=== PATIENT | male | born 1945 | race Caucasian/White ===

== ENCOUNTER 2018-05-20 16:01 | Observation (INO) ==
--- NOTE | 2018-05-20 16:34 | Emergency Department Note ---
Disposition Clinical Impression: Acute encephalopathy, Afib Disposition: Admitted As Inpatient Condition: Good Referrals: NONE,PCP [Primary Care Provider] - Forms: ED Satisfaction Letter Time of Disposition: 17:34 General Adult HPI - General Chief complaint: ED Overdose Stated complaint: Possible OD Time Seen by Provider: 05/20/18 16:03 Source: EMS Mode of arrival: EMS Limitations: no limitations Nursing Notes Reviewed: Yes Vital Signs Reviewed: Yes - History of Present Illness HPI Narrative: 72 yo F male presents to the emergency room for altered mental status. Patient was on a bus trip with some friends and just got back from [place]. Apparently he had been sleeping a lot on the way back. When he got back to [facility] they went to wake him up to get him out of the van in he was very lethargic and near unresponsive. EMS arrived. They found his respirations to be 4. They gave him Narcan as he had pinpoint pupils. He woke up within a few seconds. He presented to the ER shivering and appeared to be an opiate withdrawal. The family members that were with him on the bus trip states that he did not take more of his medications and when he normally does. He takes hydrocodone at least 4 times a day. They stated that he had previous episodes of these unresponsive spells and had been treated here at the hospital for this approximately over a year ago. Limited history at this time. There is no reports of any chest pain. No other focal complaints from family members at this time or via the patient. Pain Scale: 0 - Related Data Home Medications Medication Instructions Recorded Confirmed Aspirin [Lo-Dose Aspirin EC] 81 mg PO DAILY 11/20/16 11/01/17 Atorvastatin Calcium [Lipitor] 20 mg PO HS 11/20/16 11/01/17 Calcium Carbonate [Calcium] 500 mg PO DAILY 11/20/16 11/01/17 Cholecalciferol (D-3) [Vitamin D] 1,000 unit PO DAILY 11/20/16 11/01/17 Cyclobenzaprine HCl 5 mg PO TID PRN 11/20/16 11/01/17 Donepezil [Aricept] 10 mg PO HS 11/20/16 11/01/17 Folic Acid 1 mg PO DAILY 11/20/16 11/01/17 Gabapentin [Neurontin] 800 mg PO TID 11/20/16 11/01/17 Glucosamine HCl 3,000 mg PO DAILY 11/20/16 11/01/17 LevETIRAcetam [Roweepra] 500 mg PO BID 11/20/16 11/01/17 Lisinopril [Zestril] 20 mg PO DAILY 11/20/16 11/01/17 Loratadine [Allergy Relief] 10 mg PO DAILY 11/20/16 11/01/17 Methotrexate [Otrexup] 7.5 mg PO SA 11/20/16 11/01/17 Multivitamin [One Daily Essential] 1 tab PO DAILY 11/20/16 11/01/17 Warfarin [Coumadin] 1.5 mg PO ALMANZAR 11/20/16 11/01/17 Warfarin [Coumadin] 3 mg PO MOTUWETHFRSA 11/20/16 11/01/17 Zinc [Zinc Chelated] 50 mg PO DAILY 11/20/16 11/01/17 dilTIAZem HCl [Diltiazem 24Hr ER] 300 mg PO DAILY 11/20/16 11/01/17 Carbidopa/Levodopa 25/100 [Sinemet 2 tab PO BID 11/01/17 11/01/17 25/100] Diclofenac Sodium [Voltaren] 1 appl TP QID PRN 11/01/17 11/01/17 Docusate [Colace] 100 mg PO BID 11/01/17 11/01/17 Ezetimibe [Zetia] 10 mg PO DAILY 11/01/17 11/01/17 Fluticasone Propionate Nasal 1 spr NS DAILY 11/01/17 11/01/17 [Flonase] Folic Acid 1 mg PO DAILY 11/01/17 11/01/17 HYDROcodone/Acet 5/325 mg [[place] 1 tab PO Q6H PRN 11/01/17 11/01/17 5-325 mg] Memantine [Namenda] 5 mg PO BID 11/01/17 11/01/17 Ranitidine HCl [Heartburn Relief] 150 mg PO BID 11/01/17 11/01/17 Vitamin B Complex [B Complex] 1 tab PO DAILY 11/01/17 11/01/17 Vitamin E (Dl,Tocopheryl Acet) 400 unit PO DAILY 11/01/17 11/01/17 [Vitamin E] Zolpidem [Ambien] 10 mg PO HS 11/01/17 11/01/17 rOPINIRole [Requip] 1 mg PO HS 11/01/17 11/01/17 Allergies Allergy/AdvReac Type Severity Reaction Status Date / Time trazodone Allergy Drowsy Verified 11/01/17 12:54 latex AdvReac Rash Verified 11/01/17 12:54 Penicillins AdvReac Rash Verified 11/01/17 12:54 Limitations: ROS unobtainable due to patients medical condition (Patient is altered) Past Medical History - Past Medical History Medical history: Reports: atrial fibrillation, coronary artery disease, GERD, hyperlipidemia, hypertension, myocardial infarction, RA Psychiatric history: Reports: no psych history - Social History Smoking Status: Former smoker Smokeless Tobacco Status: No Alcohol use: Reports: recent Drug use: Reports: none Physical Exam - General Limitations: no limitations General appearance: appears intoxicated, lethargic - Head Head exam: atraumatic, normocephalic - Eye Eye exam: Present: conjunctival injection, other (Patient has pinpoint pupils bilaterally.). Absent: scleral icterus - ENT ENT exam: normal exam, normal oropharynx - Neck Neck exam: Present: normal inspection, full ROM, trachea midline - Chest Chest inspection: Present: normal inspection, symmetric chest wall rise - Respiratory Respiratory exam: Present: normal lung sounds bilaterally - Cardiovascular Cardiovascular exam: Present: irregular rhythm - Abdominal Exam Abdominal exam: Present: soft, Non-Tender, normal bowel sounds - Extremities Exam Extremities exam: Present: normal inspection - Expanded Lower Extremity Exam Hip/Pelvis exam: Present: normal inspection - Back Exam Back exam: Present: normal inspection - Neurological Exam Neurological exam: Present: other - Expanded Neurological Exam Patient oriented to: Present: person, place Coma Scale Eye Opening: To Voice Coma Scale Motor Response: Obeys Commands Coma Scale Verbal Response: Confused Coma Scale Total: 13 - Psychiatric Psychiatric exam: Present: other (Sleepy) - Skin Skin exam: Present: warm, dry, intact Course - Reevaluation(s) Reevaluation #1: Spoke with family member/friend who came to the ER. They stated that he did not take any new medications or any excess medications today. Patient woke up after the second Narcan as well. He has been alert and oriented ever since. Patient states he does not remember much of his troponin today from [place]. States he slept most of the way but does not remember traveling home. States he felt fine this morning. He members eating breakfast. He remembers stopping to eat lunch. States he drank 2 beers at lunch with his food. He does remember much after that. He denies any chest pain or shortness of breath. Vital Signs Temperature 97.7 F 05/20/18 16:04 Pulse Rate 81 05/20/18 16:04 Respiratory Rate 20 05/20/18 16:04 Blood Pressure 170/90 05/20/18 16:04 O2 Sat by Pulse Oximetry 99 05/20/18 16:04 Temperature 97.7 F 05/20/18 16:04 Pulse Rate 81 05/20/18 16:04 Respiratory Rate 20 05/20/18 16:04 Blood Pressure 170/90 05/20/18 16:04 O2 Sat by Pulse Oximetry 99 05/20/18 16:04 Oxygen Delivery Oxygen Delivery Room Air Medical Decision Making - MDM Narrative Medical decision making narrative: Patient has no significant lab findings from his baseline. His CT of the brain was negative. Chest x-ray was stable for him. His vitals have been stable in the ER. He still cannot remember much of his troponin from [place]. Patient will be admitted overnight for observation. I did speak with the hospitalist. I feel this is secondary to polysubstance with these medications from home mixed with his hydrocodone and the fact he drinks some alcohol today at lunch. - Medical Records Medical records reviewed: Yes I reviewed the patient's medical records. - Lab Data Lab results reviewed: Yes I reviewed the patient's lab results. Result diagrams: 05/20/18 16:19 05/20/18 16:19 Lab Results 05/20/18 05/20/18 05/20/18 Range/Units 16:19 16:19 16:19 WBC 6.9 (4.3-11.1) K/mcL RBC 4.10 L (4.19-5.50) M/mcL Hgb 14.1 (12.9-16.9) g/dL Hct 42.8 (37.5-50.1) % MCV 104.4 H (83.0-100.0) fL MCH 34.4 H (28.0-33.3) pg MCHC 32.9 (31.6-35.5) g/dL RDW 13.8 (11.5-14.5) % Plt Count 176 (140-400) K/mcL MPV 10.3 (9.4-12.4) fL Immature Gran % 0.4 (0-4) % Seg Neutrophils % 47.6 % Lymphocytes % 28.9 % Monocytes % 12.2 % Eosinophils % 10.0 % Basophils % 0.9 % Neutrophils # 3.3 (1.6-8.9) K/mcL Lymphocytes # 2.0 (0.6-4.6) K/mcL Monocytes # 0.8 (0.0-1.3) K/mcL Eosinophils # 0.7 H (0.0-0.6) K/mcL Basophils # 0.1 (0.0-0.2) K/mcL PT (9.4-12.1) Seconds INR Sodium 140 (136-145) mEq/L Potassium 4.3 (3.5-5.1) mEq/L Chloride 106 (98-107) mEq/L Carbon Dioxide 30 H (23-29) mEq/L BUN 8 (8-23) mg/dL Creatinine 0.79 (0.70-1.30) mg/dL Est GFR ( Amer) > 60 (> 60) Est GFR (Non-Af Amer) > 60 (> 60) BUN/Creatinine Ratio 10 (6-26) Glucose 109 H (70-105) mg/dL Calculated Osmolality 289 (280-300) Calcium 9.6 (8.6-10.3) mg/dL Total Bilirubin 0.6 (0.3-1.0) mg/dL Direct Bilirubin 0.1 (0.0-0.2) mg/dL Indirect Bilirubin 0.5 (0.0-1.2) mg/dL AST 21 (13-39) Units/L ALT 16 (7-52) Units/L Alkaline Phosphatase 86 (34-104) Units/L Troponin I < 0.03 (< 0.04) ng/mL Serum Total Protein 6.9 (6.4-8.9) g/dL Albumin 4.3 (3.5-5.7) g/dL Globulin 2.6 (2.4-3.5) g/dL Albumin/Globulin Ratio 1.7 (1.1-2.2) Urine Color (Yellow) Urine Clarity (Clear) Urine pH (5.0-8.0) pH Units Ur Specific [place] (1.010-1.025) Urine Protein (Neg-Trace) mg/dL Urine Glucose (UA) (Normal) mg/dL Urine Ketones (Negative) mg/dL Urine Blood (Negative) Urine Nitrite (Negative) Urine Bilirubin (Negative) Urine Urobilinogen (Normal) mg/dL Ur Leukocyte Esterase (Negative) Urine Microscopic RBC (0-3) per hpf Urine Microscopic WBC (0-3) per hpf Ur Squamous Epith Cells (None-Few) per lpf Urine Bacteria (None-Few) per hpf Hyaline Casts (None-Few) per lpf Ur Culture Indicated? (NO) Salicylates < 2.5 L (15.0-30.0) mg/dL Urine Opiates Screen (Wikksv=204) ng/mL Acetaminophen < 10 L (10-20) mcg/mL Ur Barbiturates Screen (Hikrhk=446) ng/mL Ur Phencyclidine Scrn (Cutoff=25) ng/mL Ur Amphetamines Screen (Imvlim=5545) ng/mL U Benzodiazepines Scrn (Lzmkfr=979) ng/mL Urine Cocaine Screen (Cutoff= 300) ng/mL U Marijuana (THC) Screen (Cutoff = 50) ng/mL Ur Drug Screen Interp Ethyl Alcohol < 10 (Less than 10) mg/dL 05/20/18 05/20/18 05/20/18 Range/Units 16:19 16:39 16:39 WBC (4.3-11.1) K/mcL RBC (4.19-5.50) M/mcL Hgb (12.9-16.9) g/dL Hct (37.5-50.1) % MCV (83.0-100.0) fL MCH (28.0-33.3) pg MCHC (31.6-35.5) g/dL RDW (11.5-14.5) % Plt Count (140-400) K/mcL MPV (9.4-12.4) fL Immature Gran % (0-4) % Seg Neutrophils % % Lymphocytes % % Monocytes % % Eosinophils % % Basophils % % Neutrophils # (1.6-8.9) K/mcL Lymphocytes # (0.6-4.6) K/mcL Monocytes # (0.0-1.3) K/mcL Eosinophils # (0.0-0.6) K/mcL Basophils # (0.0-0.2) K/mcL PT 27.6 H (9.4-12.1) Seconds INR 2.4 Sodium (136-145) mEq/L Potassium (3.5-5.1) mEq/L Chloride (98-107) mEq/L Carbon Dioxide (23-29) mEq/L BUN (8-23) mg/dL Creatinine (0.70-1.30) mg/dL Est GFR ( Amer) (> 60) Est GFR (Non-Af Amer) (> 60) BUN/Creatinine Ratio (6-26) Glucose (70-105) mg/dL Calculated Osmolality (280-300) Calcium (8.6-10.3) mg/dL Total Bilirubin (0.3-1.0) mg/dL Direct Bilirubin (0.0-0.2) mg/dL Indirect Bilirubin (0.0-1.2) mg/dL AST (13-39) Units/L ALT (7-52) Units/L Alkaline Phosphatase (34-104) Units/L Troponin I (< 0.04) ng/mL Serum Total Protein (6.4-8.9) g/dL Albumin (3.5-5.7) g/dL Globulin (2.4-3.5) g/dL Albumin/Globulin Ratio (1.1-2.2) Urine Color Yellow (Yellow) Urine Clarity Clear (Clear) Urine pH 7.5 (5.0-8.0) pH Units Ur Specific [place] 1.019 (1.010-1.025) Urine Protein Negative (Neg-Trace) mg/dL Urine Glucose (UA) Normal (Normal) mg/dL Urine Ketones Negative (Negative) mg/dL Urine Blood Negative (Negative) Urine Nitrite Negative (Negative) Urine Bilirubin Negative (Negative) Urine Urobilinogen Normal (Normal) mg/dL Ur Leukocyte Esterase Small H (Negative) Urine Microscopic RBC 0-3 (0-3) per hpf Urine Microscopic WBC 3-5 H (0-3) per hpf Ur Squamous Epith Cells None Seen (None-Few) per lpf Urine Bacteria None Seen (None-Few) per hpf Hyaline Casts None Seen (None-Few) per lpf Ur Culture Indicated? YES A (NO) Salicylates (15.0-30.0) mg/dL Urine Opiates Screen Positive H (Kjxixd=392) ng/mL Acetaminophen (10-20) mcg/mL Ur Barbiturates Screen Negative (Blialf=262) ng/mL Ur Phencyclidine Scrn Negative (Cutoff=25) ng/mL Ur Amphetamines Screen Negative (Acotjc=2160) ng/mL U Benzodiazepines Scrn Negative (Nyyyxd=852) ng/mL Urine Cocaine Screen Negative (Cutoff= 300) ng/mL U Marijuana (THC) Screen Negative (Cutoff = 50) ng/mL Ur Drug Screen Interp See Below Ethyl Alcohol (Less than 10) mg/dL - Radiology Data Radiology results reviewed: Yes I reviewed the patient's radiology results. - EKG Data EKG #1 EKG attestation: Yes I reviewed and interpreted this EKG. EKG results narrative: EKG shows atrial fibrillation. Rate is 79. QRS 86. QTC 397. Patient has diffuse ST depressions throughout the lateral and inferior leads. This was seen on previous EKG from 2015. Critical Care Time Critical Care Time: Yes Total Critical Care Time: 35 Attestation: Critical care time of 35 minutes spent in medical management of acute altered mental status.
[2018-05-20 16:36] LABS: Basophils # 0.1 K/mcL (0.0-0.2); Basophils % 0.9 %; Eosinophils # 0.7 K/mcL (0.0-0.6); Hematocrit 42.8 % (37.5-50.1); Hemoglobin 14.1 g/dL (12.9-16.9); Immature Granulocytes % 0.4 % (0-4); Lymphocytes % 28.9 %; Mean Corpuscular HGB Conc 32.9 g/dL (31.6-35.5); Mean Corpuscular Hemoglobin 34.4 pg (28.0-33.3); Mean Corpuscular Volume 104.4 fL (83.0-100.0); Mean Platelet Volume 10.3 fL (9.4-12.4); Monocytes # 0.8 K/mcL (0.0-1.3); Monocytes % 12.2 %; Neutrophils # 3.3 K/mcL (1.6-8.9); Platelet Count 176 K/mcL (140-400); Red Cell Distribution Width 13.8 % (11.5-14.5); Segmented Neutrophils % 47.6 %
[2018-05-20 16:53] LABS: Acetaminophen < 10 mcg/mL (10-20); Ethanol < 10 mg/dL (Less than 10); Salicylate < 2.5 mg/dL (15.0-30.0)
[2018-05-20 16:54] LABS: INR 2.4; Prothrombin Time 27.6 Seconds (9.4-12.1)
[2018-05-20 16:56] LABS: Alanine Aminotransferase 16 Units/L (7-52); Albumin 4.3 g/dL (3.5-5.7); Albumin/Globulin Ratio 1.7 (1.1-2.2); Alkaline Phosphatase 86 Units/L (34-104); Aspartate Amino Transferase 21 Units/L (13-39); BUN/Creatinine Ratio 10 (6-26); Bilirubin,Direct 0.1 mg/dL (0.0-0.2); Bilirubin,Indirect 0.5 mg/dL (0.0-1.2); Bilirubin,Total 0.6 mg/dL (0.3-1.0); Blood Urea Nitrogen 8 mg/dL (8-23); Calcium 9.6 mg/dL (8.6-10.3); Carbon Dioxide 30 mEq/L (23-29); Chloride 106 mEq/L (98-107); Globulin 2.6 g/dL (2.4-3.5); Glucose 109 mg/dL (70-105); Osmolality,Calculated 289 (280-300); Potassium 4.3 mEq/L (3.5-5.1); Sodium 140 mEq/L (136-145); Total Protein 6.9 g/dL (6.4-8.9); Troponin I < 0.03 ng/mL (< 0.04); eGFR For Non-African Americans > 60 (> 60)
[2018-05-20 17:13] LABS: Amphetamine Screen,Urine Negative ng/mL (Cutoff=1000); Barbiturate Screen,Urine Negative ng/mL (Cutoff=200); Benzodiazepines Screen,Urine Negative ng/mL (Cutoff=200); Cannabinoid Screen,Urine Negative ng/mL (Cutoff = 50); Cocaine Screen,Urine Negative ng/mL (Cutoff= 300); Opiate Screen,Urine Positive ng/mL (Cutoff=300); Phencyclidine Screen,Urine Negative ng/mL (Cutoff=25)
[2018-05-20 17:19] LABS: Bilirubin,Urine Negative (Negative); Blood,Urine Negative (Negative); Clarity,Urine Clear (Clear); Color,Urine Yellow (Yellow); Glucose,Urine (UA) Normal (Normal); Ketones,Urine Negative (Negative); Leukocyte Esterase,Urine Small (Negative); Nitrite,Urine Negative (Negative); PH,Urine 7.5 pH Units (5.0-8.0); Protein,Urine Negative (Neg-Trace); Specific Gravity,Urine 1.019 (1.010-1.025); Urobilinogen,Urine Normal (Normal)
[2018-05-20 17:21] LABS: Bacteria,Urine None Seen per hpf (None-Few); Hyaline Casts,Urine None Seen per lpf (None-Few); RBC,Urine 0-3 per hpf (0-3); Squamous Epithelial Cell,Urine None Seen per lpf (None-Few)
[2018-05-20] MEDS ORDERED: Naloxone 0.4 MG/ML INJ IVP PRN ×2 (17:39→18:38)
--- NOTE | 2018-05-20 18:38 | Internal Med History&Physical ---
Date of Encounter: 05/20/18 Time of Encounter: 16:30 Internal Medicine - H&P: HPI History of present illness: 72 yo F male presents to the emergency room for altered mental status. Patient had recent bus trip from [place]. Per his significant other at bedside, he was somnolent in the back during the entire ride. They tried to wake him up and he was lethargic and so they called EMS. His RR was 4, he had pinpoint pupils and they gave Narcan and reported that he became alert afterwords. He presented to ED shivering and with opiate withdrawal-like symptoms. He is compliant with medications and does not take more than prescribed. Patient is on significant amount of RECOVERY ANALYST depressing medications. He takes Hydrocodone regularly about 4 times per day, Flexeril, Sinemet, Aricept, Gabapentin, Ambien. Patient states that this happened before as well about a year ago. Patient in the ED was completely alert and ambulating with some assistance by the time of exam. Patient was on a bus trip with some friends and just got back from [place]. Past Med Surg Social Fam HX - Past Medical History Medical history: atrial fibrillation, coronary artery disease, GERD, hyperlipidemia, hypertension, myocardial infarction, RA Additional medical history: Rheumatic Fever. Sleep Apnea (CPAP at home) Psychiatric history: no psych history - Past Surgical History Additional surgical history: CABG 1993. Bilateral Hernia Repair - Social History Smoking Status: Former smoker Smokeless Tobacco Status: No Alcohol use: recent Drug use: none - Family History Mother Living Status: Age at : 72 Hx Family Cardiac Disorders: Yes Father Living Status: Age at : 60 Hx Family Cardiac Disorders: Yes ([place]) Internal Medicine - H&P: Meds Aspirin [Lo-Dose Aspirin EC] 81 mg PO DAILY 11/20/16 [History] Atorvastatin Calcium [Lipitor] 20 mg PO HS 11/20/16 [History] Calcium Carbonate [Calcium] 500 mg PO DAILY 11/20/16 [History] Cholecalciferol (D-3) [Vitamin D] 1,000 unit PO DAILY 11/20/16 [History] Cyclobenzaprine HCl 5 mg PO TID PRN 11/20/16 [History] Donepezil [Aricept] 10 mg PO HS 11/20/16 [History] Folic Acid 1 mg PO DAILY 11/20/16 [History] Gabapentin [Neurontin] 800 mg PO TID 11/20/16 [History] Glucosamine HCl 3,000 mg PO DAILY 11/20/16 [History] LevETIRAcetam [Roweepra] 500 mg PO BID 11/20/16 [History] Lisinopril [Zestril] 20 mg PO DAILY 11/20/16 [History] Loratadine [Allergy Relief] 10 mg PO DAILY 11/20/16 [History] Methotrexate [Otrexup] 7.5 mg PO SA 11/20/16 [History] Multivitamin [One Daily Essential] 1 tab PO DAILY 11/20/16 [History] Warfarin [Coumadin] 1.5 mg PO ALMANZAR 11/20/16 [History] Warfarin [Coumadin] 3 mg PO MOTUWETHFRSA 11/20/16 [History] Zinc [Zinc Chelated] 50 mg PO DAILY 11/20/16 [History] dilTIAZem HCl [Diltiazem 24Hr ER] 300 mg PO DAILY 11/20/16 [History] Carbidopa/Levodopa 25/100 [Sinemet 25/100] 2 tab PO BID 11/01/17 [History] Diclofenac Sodium [Voltaren] 1 appl TP QID PRN 11/01/17 [History] Docusate [Colace] 100 mg PO BID 11/01/17 [History] Ezetimibe [Zetia] 10 mg PO DAILY 11/01/17 [History] Fluticasone Propionate Nasal [Flonase] 1 spr NS DAILY 11/01/17 [History] Folic Acid 1 mg PO DAILY 11/01/17 [History] HYDROcodone/Acet 5/325 mg [[place] 5-325 mg] 1 tab PO Q6H PRN 11/01/17 [History] Memantine [Namenda] 5 mg PO BID 11/01/17 [History] Ranitidine HCl [Heartburn Relief] 150 mg PO BID 11/01/17 [History] Vitamin B Complex [B Complex] 1 tab PO DAILY 11/01/17 [History] Vitamin E (Dl,Tocopheryl Acet) [Vitamin E] 400 unit PO DAILY 11/01/17 [History] Zolpidem [Ambien] 10 mg PO HS 11/01/17 [History] rOPINIRole [Requip] 1 mg PO HS 11/01/17 [History] Allergy/AdvReac Type Severity Reaction Status Date / Time trazodone Allergy Drowsy Verified 11/01/17 12:54 latex AdvReac Rash Verified 11/01/17 12:54 Penicillins AdvReac Rash Verified 11/01/17 12:54 All Systems PM: A 10-system review of systems was performed and is negative for pertinent findings except as documented above in the HPI. - Constitutional Vitals: Temp Pulse Resp BP Pulse Ox 97.7 F 87 16 161/92 100 05/20/18 16:04 05/20/18 17:48 05/20/18 17:48 05/20/18 17:48 05/20/18 17:48 Exam: . - Head Head exam: Present: atraumatic, normocephalic - Eye Eye exam: Present: PERRL, conjuntiva pink, sclera anicteric Pupils: Present: PERRL - Neck Neck exam general surgery: Present: supple, trachea midline. Absent: lymphadenopathy - Respiratory Respiratory exam: Present: CTAB. Absent: accessory muscle use, rales, rhonchi, wheezes - Cardiovascular Cardiovascular exam: Present: irregular rhythm, +S1, +S2. Absent: diastolic murmur, gallop, rubs, systolic murmur - GI/Abdominal GI/Abdominal exam: Present: normal bowel sounds, soft, no peritoneal signs. Absent: distended, tenderness - Extremities Exam Extremities exam: Present: warm, radial pulses palpable and symmetrical. Absent: calf tenderness, cyanotic, pedal edema - Neurological Exam Neurological exam: Present: CN II-XII intact, oriented X3, no focal deficits. Absent: pronater drift, facial droop, speech deficit - Skin Skin exam: Present: dry, intact Internal Med - H&P Results - Labs CBC & Chem 7: 05/20/18 16:19 05/20/18 16:19 Labs: Short CBC 05/20/18 Range/Units 16:19 WBC 6.9 (4.3-11.1) K/mcL Hgb 14.1 (12.9-16.9) g/dL Hct 42.8 (37.5-50.1) % Plt Count 176 (140-400) K/mcL Neutrophils # 3.3 (1.6-8.9) K/mcL BMP 11/09/18 16:19 Sodium 140 Potassium 4.3 Chloride 106 Carbon Dioxide 30 H BUN 8 Creatinine 0.79 Glucose 109 H Calcium 9.6 Cardiac Enzymes 05/20/18 Range/Units 16:19 Troponin I < 0.03 (< 0.04) ng/mL Liver Function 05/20/18 Range/Units 16:19 Total Bilirubin 0.6 (0.3-1.0) mg/dL Direct Bilirubin 0.1 (0.0-0.2) mg/dL AST 21 (13-39) Units/L ALT 16 (7-52) Units/L Alkaline Phosphatase 86 (34-104) Units/L Albumin 4.3 (3.5-5.7) g/dL Urine 05/20/18 Range/Units 16:39 Urine Color Yellow (Yellow) Urine Clarity Clear (Clear) Urine pH 7.5 (5.0-8.0) pH Units Ur Specific [place] 1.019 (1.010-1.025) Urine Protein Negative (Neg-Trace) mg/dL Urine Glucose (UA) Normal (Normal) mg/dL - Impressions ITS Impressions Chest X-Ray 05/20/18 16:11 IMPRESSION: Slight to mild pulmonary vascular congestion. No other significant abnormality. Prior CABG. D/ / Link Hernandez MD / Link Hernandez MD Interpreting Provider: Link Hernandez MD Head CT 05/20/18 16:11 IMPRESSION: No acute intracranial abnormality. [id number] atrophy appropriate for age. Large amount of ischemic white matter change also age-appropriate. No significant change from the prior study. D/ / Link Hernandez MD / Link Hernandez MD Interpreting Provider: Link Hernandez MD - Assessment and plan (1) Acute encephalopathy Current Visit: Yes Status: Acute Assessment and plan: Based on presentation after EMS treated patient prior to arrival with RR 4, pinpoint pupuls, on chronic opiates, as Narcan responsive, and in the ED again responded to Narcan, and significant RECOVERY ANALYST depressant medications, this is likely due to opiate overdose. CT head had no acute abnormalities. Patient has no focal deficits, he is now completely awake and alert. - Continue telemetry monitoring - Narcan prn - Resume home medications minus Flexeril. Reduce dosage of Gabapentin to avoid gabapentin withdrawal. Discontinue Ambien. Awaiting med rec. (2) History of coronary artery bypass graft Current Visit: Yes Status: Acute (3) Ejection fraction < 50% Current Visit: Yes Status: Acute (4) Severe sleep apnea Current Visit: Yes Status: Acute (5) Coronary artery disease Current Visit: Yes Status: Acute Qualifiers: Coronary Disease-Associated Artery/Lesion type: unspecified vessel or lesion type [place] vs. transplanted heart: unspecified whether [place] or transplanted heart Associated angina: angina presence unspecified Qualified Code(s): I25.10 - Atherosclerotic heart disease of [place] coronary artery without angina pectoris (6) Hypertension Current Visit: Yes Status: Acute Qualifiers: Hypertension type: unspecified Qualified Code(s): I10 - Essential (primary) hypertension (7) Afib Current Visit: Yes Status: Acute Assessment and plan: Resume home medications. On coumadin Qualifiers: Atrial fibrillation type: chronic Qualified Code(s): I48.2 - Chronic atrial fibrillation (8) DVT prophylaxis Current Visit: Yes Status: Acute Assessment and plan: On Coumadin for afib. - Time Spent With Patient Total time spent is greater than 50% in coordination of care (as documented) at patient's floor/unit and/or counseling patient:
[2018-05-20] MEDS ORDERED: Melatonin 3 MG TABLET PO PRN (18:41)
[2018-05-20] MEDS ORDERED: Ipratropium/Albuterol Neb 3 ML IH PRN (18:41)
--- NOTE | 2018-05-20 19:10 | Electrocardiograph Report ---
[place] [facility] Test Date: 2018-05-20 Pat Name: Ryne Fletcher Department: [id number] Room: 3A52 Gender: Respite Care Provider: : 1945 Requested By: Hemant Ga Order Number: [id number] Reading MD: Stephani Garcia Measurements Intervals [place] Rate: 79 P: 59 MN: 164 QRS: 81 QRSD: 86 T: -75 QT: 381 QTc: 397 Interpretive Statements Sinus rhythm Multiform ventricular premature complexes Anteroseptal infarct, age indeterminate Electronically Signed On 05-20-2018 19:08:45 EST by Stephani Garcia
[2018-05-20] MEDS ORDERED: Acetaminophen 325 MG TABLET PO PRN (22:33)
[2018-05-21 05:50] LABS: BUN/Creatinine Ratio 16 (6-26); Blood Urea Nitrogen 9 mg/dL (8-23); Calcium 8.8 mg/dL (8.6-10.3); Carbon Dioxide 22 mEq/L (23-29); Chloride 111 mEq/L (98-107); Glucose 114 mg/dL (70-105); Osmolality,Calculated 288 (280-300); Potassium 3.5 mEq/L (3.5-5.1); Sodium 139 mEq/L (136-145); eGFR For Non-African Americans > 60 (> 60)
[2018-05-21] MEDS ORDERED: *HR* Heparin 5,000 UNIT/ML VIAL SQ SCH (06:00)
[2018-05-21 06:46] VITALS: BP 131/61
[2018-05-21] MEDS ORDERED: Fluticasone Propionate Nasal 50 MCG/SPRAY BOTTLE NS PRN (07:56)
[2018-05-21] MEDS ORDERED: *HR* HYDROcodone/Acet 5/325 mg TABLET PO PRN (07:56)
[2018-05-21] MEDS ORDERED: *HR* Methotrexate 2.5 MG TABLET PO SCH (08:00)
[2018-05-21] MEDS ORDERED: Carbidopa/Levodopa 25/100 TABLET PO SCH (09:00)
[2018-05-21] MEDS ORDERED: Folic Acid 1 MG TABLET PO SCH (09:00)
[2018-05-21] MEDS ORDERED: ZINC 50 MG PO SCH (09:00)
[2018-05-21] MEDS ORDERED: Cholecalciferol (D-3) 1,000 UNIT TABLET PO SCH (09:00)
[2018-05-21] MEDS ORDERED: Lisinopril 20 MG TABLET PO SCH (09:00)
[2018-05-21] MEDS ORDERED: Multivit/Ca/Min/Fe/FA 1 TAB TABLET PO SCH (09:00)
[2018-05-21] MEDS ORDERED: Famotidine 20 MG TABLET PO SCH (09:00)
[2018-05-21] MEDS ORDERED: GLUCOSAMINE HCL 3000 MG PO SCH (09:00)
[2018-05-21] MEDS ORDERED: levETIRAcetam 250 MG TABLET PO SCH (09:00)
[2018-05-21] MEDS ORDERED: Loratadine 10 MG TABLET PO SCH (09:00)
[2018-05-21] MEDS ORDERED: Vitamin B Complex/Vit C/Vit E 1 EACH TABLET PO SCH (09:00)
[2018-05-21] MEDS ORDERED: Aspirin Enteric Coated 81 MG Tablet PO SCH (09:00)
[2018-05-21] MEDS ORDERED: Gabapentin 300 MG CAPSULE PO SCH (09:00)
--- NOTE | 2018-05-21 10:14 | Discharge Summary ---
- NOTES TO OUTPATIENT PROVIDER Notes to Outpatient Provider: - Will need close medications adjustments. On discharge, FLexeril will be discontinued, Gabapentin and I advised against consumption of alcohol (which he did note that he might drink to reduce pain). - Repeat Urinalysis. Patient had a small amount of leukocyte esterase and small amount of WBC. Orders not resulted at time of discharge: Pending orders 05/20/18 16:39 Culture,Urine [RM] Stat 05/21/18 09:38 Urinalysis Reflex Cult & Micro [URIN] Routine Date of Encounter: 05/21/18 Time of Encounter: 10:12 - Discharge Diagnosis (1) Opiate overdose Priority: Primary Status: Acute Assessment and Plan: 72 yo F male presents to the emergency room for altered mental status. Patient had recent bus trip from [place]. Per his significant other at bedside, he was somnolent in the back during the entire ride. They tried to wake him up and he was lethargic and so they called EMS. His RR was 4, he had pinpoint pupils and they gave Narcan and reported that he became alert afterwords. He presented to ED shivering and with opiate withdrawal-like symptoms. He is compliant with medications and does not take more than prescribed. Patient is on significant amount of DESOLDERER depressing medications. He takes Hydrocodone regularly about 4 times per day, Flexeril, Sinemet, Aricept, Gabapentin, Ambien. Patient states that this happened before as well about a year ago. Patient in the ED was completely alert and ambulating with some assistance by the time of exam. Patient had lethargy, RR of 4, pinpoint pupils, and responded to Narcan when given by EMS and also when given by ED physicians. After monitoring patient overnight, he had no acute issues, and he was back to baseline. While in hospital during my assessment, he was back to his normal mental status per his significant other who was at his bedside. He had no focal deficits, he was pleasant. Since patient has significant amount of DESOLDERER depressants, these medications will be reduced on discharged to reduce any further polypharmacy overdose. Patient agrees to this. To prevent significant withdrawal, he will need close medications adjustments. On discharge, Flexeril will be discontinued, Ambien discontinued, Gabapentin decreased (to 300 mg TID instead of 800 mg TID) and I advised against consumption of alcohol (which he did note that he might drink to reduce pain). [place] will be decreased in frequency now to TID instead of QID. Patient is reluctant because he would like to continue medications at his current strength but we discussed the severity of polypharmacy overdose. Qualifiers: Encounter type: initial encounter Injury intent: accidental or unintentional Qualified Code(s): T40.601A - Poisoning by unspecified narcotics, accidental (unintentional), initial encounter (2) Acute encephalopathy Priority: Secondary Status: Resolved (3) History of coronary artery bypass graft Priority: Secondary Status: Acute (4) Ejection fraction < 50% Priority: Secondary Status: Acute (5) Severe sleep apnea Priority: Secondary Status: Acute (6) Coronary artery disease Priority: Secondary Status: Acute Qualifiers: Coronary Disease-Associated Artery/Lesion type: unspecified vessel or lesion type [place] vs. transplanted heart: unspecified whether [place] or transplanted heart Associated angina: angina presence unspecified Qualified Code(s): I25.10 - Atherosclerotic heart disease of [place] coronary artery without angina pectoris (7) Hypertension Priority: Secondary Status: Acute Qualifiers: Hypertension type: unspecified Qualified Code(s): I10 - Essential (primary) hypertension (8) Afib Priority: Secondary Status: Acute Qualifiers: Atrial fibrillation type: chronic Qualified Code(s): I48.2 - Chronic atrial fibrillation (9) DVT prophylaxis Priority: Secondary Status: Acute - Time Spent with Patient Total time spent providing and/or coordinating discharge services: - Discharge Medications Prescriptions: Gabapentin [Neurontin] 300 mg PO TID 14 Days #42 capsule Melatonin 3 mg PO HS PRN #30 tablet PRN Reason: Insomnia Home Medications: Aspirin [Lo-Dose Aspirin EC] 81 mg PO DAILY 11/20/16 [History] Atorvastatin Calcium [Lipitor] 20 mg PO HS 11/20/16 [History] Calcium Carbonate [Calcium] 500 mg PO DAILY 11/20/16 [History] Cholecalciferol (D-3) [Vitamin D] 1,000 unit PO DAILY 11/20/16 [History] Donepezil [Aricept] 10 mg PO HS 11/20/16 [History] Folic Acid 1 mg PO DAILY 11/20/16 [History] Glucosamine HCl 3,000 mg PO DAILY 11/20/16 [History] LevETIRAcetam [Roweepra] 500 mg PO BID 11/20/16 [History] Lisinopril [Zestril] 20 mg PO DAILY 11/20/16 [History] Methotrexate [Otrexup] 7.5 mg PO SA 11/20/16 [History] Multivitamin [One Daily Essential] 1 tab PO DAILY 11/20/16 [History] Warfarin [Coumadin] 1.5 mg PO ALMANZAR 11/20/16 [History] Warfarin [Coumadin] 3 mg PO MOTUWETHFRSA 11/20/16 [History] Zinc [Zinc Chelated] 50 mg PO DAILY 11/20/16 [History] dilTIAZem HCl [Diltiazem 24Hr ER] 300 mg PO DAILY 11/20/16 [History] Carbidopa/Levodopa 25/100 [Sinemet 25/100] 2 tab PO BID 11/01/17 [History] Diclofenac Sodium [Voltaren] 1 appl TP QID PRN 11/01/17 [History] Docusate [Colace] 100 mg PO BID 11/01/17 [History] Ezetimibe [Zetia] 10 mg PO DAILY 11/01/17 [History] Fluticasone Propionate Nasal [Flonase] 1 spr NS PRN PRN 11/01/17 [History] Folic Acid 1 mg PO DAILY 11/01/17 [History] Memantine [Namenda] 5 mg PO BID 11/01/17 [History] Vitamin B Complex [B Complex] 1 tab PO DAILY 11/01/17 [History] Vitamin E (Dl,Tocopheryl Acet) [Vitamin E] 400 unit PO DAILY 11/01/17 [History] rOPINIRole [Requip] 1 mg PO HS 11/01/17 [History] Gabapentin [Neurontin] 300 mg PO TID 14 Days #42 capsule 05/21/18 [Rx] HYDROcodone/Acet 5/325 mg [Finley 5-325 mg] 1 tab PO Q8H PRN #0 05/21/18 [Rx] Melatonin 3 mg PO HS PRN #30 tablet 05/21/18 [Rx] Allergies/Adverse Reactions: Allergy/AdvReac Type Severity Reaction Status Date / Time trazodone Allergy Drowsy Verified 11/01/17 12:54 latex AdvReac Rash Verified 11/01/17 12:54 Penicillins AdvReac Rash Verified 11/01/17 12:54 Date of admission: 05/20/18 18:44 Primary care physician: PCP NONE Discharging clinician: Levar Stein - Constitutional Vitals: Temp Pulse Resp BP Pulse Ox 98.2 F 82 14 131/61 97 05/21/18 06:42 05/21/18 06:42 05/21/18 06:42 05/21/18 06:42 05/21/18 06:42 Exam: . - Head Head exam: Present: atraumatic, normocephalic - Eye Eye exam: Present: PERRL, conjuntiva pink, sclera anicteric Pupils: Present: PERRL - Neck Neck exam general surgery: Present: supple, trachea midline. Absent: lymphadenopathy - Respiratory Respiratory exam: Present: CTAB. Absent: accessory muscle use, rales, rhonchi, wheezes - Cardiovascular Cardiovascular exam: Present: RRR, +S1, +S2. Absent: diastolic murmur, gallop, rubs, systolic murmur - GI/Abdominal GI/Abdominal exam: Present: normal bowel sounds, soft, no peritoneal signs. Absent: distended, tenderness - Extremities Exam Extremities exam: Present: warm, radial pulses palpable and symmetrical. Absent: calf tenderness, cyanotic, pedal edema - Neurological Exam Neurological exam: Present: CN II-XII intact, oriented X3, no focal deficits. Absent: pronater drift, facial droop, speech deficit - Skin Skin exam: Present: dry, intact - Patient Status Disposition: Home, Self-Care Condition: Good Functional capacity at discharge: independent ambulation Overall status at discharge: patient is back to baseline - Discharge Instructions Follow Up With: NONE,PCP [Primary Care Provider] - - Diet and Activity Activity: increase activity as tolerated Diet: advance to your usual diet
[2018-05-21] MEDS ORDERED: *HR* Warfarin 3 MG TABLET PO SCH (18:00)
[2018-05-21] MEDS ORDERED: rOPINIRole 1 MG TABLET PO SCH (21:00)
[2018-05-22] MEDS ORDERED: *HR* Warfarin 3 MG TABLET PO SCH (18:00)
== END 2018-05-21 11:38 | disposition home or self-care (01) ==
LOC: 3ANU 16:01 → EMEROOARM 16:01 → 3ANU 20:10
PROVIDERS: ADMIT Internal Medicine; ATTEND Internal Medicine

== ENCOUNTER 2021-05-21 13:42 | Inpatient (IN) ==
[2021-05-21 14:58] LABS: VBG HCO3 22 mEq/L (21-27); VBG PCO2 36 mmHg (41-51); VBG PO2 137 mmHg (25-50)
[2021-05-21 15:32] LABS: Alanine Aminotransferase 16 Units/L (7-52); Albumin 3.2 g/dL (3.5-5.7); Albumin/Globulin Ratio 1.3 (1.1-2.2); Alkaline Phosphatase 137 Units/L (34-104); Aspartate Amino Transferase 32 Units/L (13-39); BUN/Creatinine Ratio 15 (6-26); Bilirubin,Direct 0.1 mg/dL (0.0-0.2); Bilirubin,Indirect 0.6 mg/dL (0.0-1.0); Bilirubin,Total 0.7 mg/dL (0.3-1.0); Blood Urea Nitrogen 14 mg/dL (8-23); Carbon Dioxide 24 mEq/L (23-29); Chloride 104 mEq/L (98-107); Globulin 2.4 g/dL (2.4-3.5); Glucose 106 mg/dL (70-105); Osmolality,Calculated 279 (280-300); Potassium 5.1 mEq/L (3.5-5.1); Sodium 134 mEq/L (136-145); Total Protein 5.6 g/dL (6.4-8.9); eGFR For African Americans > 60 (> 60); eGFR For Non-African Americans > 60 (> 60)
[2021-05-21 15:37] LABS: Basophils # 0.1 K/mcL (0.0-0.2); Basophils % 0.7 %; Eosinophils # 0.1 K/mcL (0.0-0.6); Eosinophils % 1.3 %; Hematocrit 39.7 % (37.5-50.1); Hemoglobin 12.5 g/dL (12.9-16.9); Immature Granulocytes % 0.4 % (0-4); Lymphocytes # 1.4 K/mcL (0.6-4.6); Lymphocytes % 15.1 %; Mean Corpuscular HGB Conc 31.5 g/dL (31.6-35.5); Mean Corpuscular Hemoglobin 34.1 pg (28.0-33.3); Mean Corpuscular Volume 108.2 fL (83.0-100.0); Mean Platelet Volume 11.8 fL (9.4-12.4); Monocytes # 0.7 K/mcL (0.0-1.3); Monocytes % 7.4 %; Neutrophils # 7.2 K/mcL (1.6-8.9); Platelet Count 174 K/mcL (140-400); Red Blood Count 3.67 M/mcL (4.19-5.50); Red Cell Distribution Width 15.9 % (11.5-14.5); Segmented Neutrophils % 75.1 %; White Blood Count 9.6 K/mcL (4.3-11.1)
[2021-05-21 15:48] LABS: INR 4.3
[2021-05-21 15:50] LABS: Activated Partial Thrombo Time 48.6 Seconds (26.0-36.0)
[2021-05-21 15:51] LABS: Bacteria,Urine Few per hpf (None-Few); Bilirubin,Urine Negative (Negative); Blood,Urine Trace (Negative); Clarity,Urine Turbid (Clear); Color,Urine Yellow (Yellow); Glucose,Urine (UA) Normal (Normal); Ketones,Urine Negative (Negative); Leukocyte Esterase,Urine Large (Negative); Nitrite,Urine Negative (Negative); Protein,Urine 50 mg/dL (Neg-Trace); RBC,Urine 0-3 per hpf (0-3); Specific Gravity,Urine 1.019 (1.010-1.025); Squamous Epithelial Cell,Urine Few per hpf (None-Few); Urobilinogen,Urine Normal (Normal); WBC,Urine TNTC per hpf (0-3)
[2021-05-21 15:55] LABS: Prothrombin Time 47.3 Seconds (9.4-12.1)
[2021-05-21 16:05] LABS: Troponin I 1.04 ng/mL (< 0.04)
[2021-05-21 16:06] LABS: Ethanol < 10 mg/dL (Less than 10)
[2021-05-21 16:11] LABS: Amphetamine Screen,Urine Negative ng/mL (Cutoff=1000); Barbiturate Screen,Urine Negative ng/mL (Cutoff=200); Benzodiazepines Screen,Urine Negative ng/mL (Cutoff=200); Cannabinoid Screen,Urine Negative ng/mL (Cutoff = 50); Cocaine Screen,Urine Negative ng/mL (Cutoff= 300); Opiate Screen,Urine Positive ng/mL (Cutoff=300); Phencyclidine Screen,Urine Negative ng/mL (Cutoff=25)
[2021-05-21] MEDS ORDERED: Isovue-370 500 ML BOTTLE IVP ONE (16:15)
[2021-05-21 16:33] LABS: Adenovirus Not Detected (Not Detect); Bordetella Pertussis Not Detected (Not Detect); Chlamydophila pneumoniae Not Detected (Not Detect); Coronavirus 229E Not Detected (Not Detect); Coronavirus HKU1 Not Detected (Not Detect); Coronavirus NL63 Not Detected (Not Detect); Coronavirus OC43 Not Detected (Not Detect); Human Metapneumovirus Not Detected (Not Detect); Human Rhinovirus/Enterovirus Not Detected (Not Detect); Influenza A Subtype 2009 H1 Not Detected (Not Detect); Influenza B Not Detected (Not Detect); Mycoplasma pneumoniae Not Detected (Not Detect); Parainfluenza Virus 1 Not Detected (Not Detect); Parainfluenza Virus 2 Not Detected (Not Detect); Parainfluenza Virus 3 Not Detected (Not Detect); Parainfluenza Virus 4 Not Detected (Not Detect); Respiratory Syncytial Virus Not Detected (Not Detect); SARS-CoV-2 Not Detected (Not Detect)
[2021-05-21] MEDS ORDERED: Furosemide 20 MG/2 ML VIAL IVP ONE (17:37)
[2021-05-21] MEDS ORDERED: Naloxone 0.4 MG/ML INJ IVP PRN (17:46)
[2021-05-21] MEDS ORDERED: Ondansetron ODT 4 MG TAB.RAPDIS SL PRN (17:46)
[2021-05-21] MEDS ORDERED: Ipratropium/Albuterol Neb 3 ML IH PRN (17:53)
[2021-05-21] MEDS ORDERED: levoFLOXacin 750 MG/150 ML 750 MG/150 ML BAG IVPB ONE (17:55)
[2021-05-21] MEDS ORDERED: Perflutren Lipid Microsphere 1.3 ML in 0.9 % Sodium Chloride 8.7 ML IVP PRN (17:56)
[2021-05-21] MEDS: Furosemide 40 MG/4 ML VIAL IVP SCH (20:05)
[2021-05-21] MEDS ORDERED: Furosemide 40 MG/4 ML VIAL IVP SCH (21:00)
[2021-05-21] MEDS: Carbidopa/Levodopa 25/100 TABLET PO SCH (22:05)
[2021-05-21] MEDS: levETIRAcetam 250 MG TABLET PO SCH (22:06)
[2021-05-21] MEDS: rOPINIRole 1 MG TABLET PO SCH (22:07)
[2021-05-22 02:59] LABS: Basophils # 0.1 K/mcL (0.0-0.2); Basophils % 0.7 %; Eosinophils # 0.3 K/mcL (0.0-0.6); Eosinophils % 2.9 %; Hematocrit 36.3 % (37.5-50.1); Immature Granulocytes % 0.6 % (0-4); Lymphocytes # 1.5 K/mcL (0.6-4.6); Lymphocytes % 13.8 %; Mean Corpuscular HGB Conc 33.1 g/dL (31.6-35.5); Mean Corpuscular Hemoglobin 35.4 pg (28.0-33.3); Mean Corpuscular Volume 107.1 fL (83.0-100.0); Mean Platelet Volume 11.7 fL (9.4-12.4); Monocytes # 0.9 K/mcL (0.0-1.3); Monocytes % 8.1 %; Platelet Count 158 K/mcL (140-400); Red Blood Count 3.39 M/mcL (4.19-5.50); Red Cell Distribution Width 15.8 % (11.5-14.5); Segmented Neutrophils % 73.9 %; White Blood Count 10.8 K/mcL (4.3-11.1)
[2021-05-22 03:10] LABS: INR 4.2
[2021-05-22 03:24] LABS: Prothrombin Time 46.4 Seconds (9.4-12.1)
[2021-05-22] MEDS ORDERED: *HR* Metoprolol 5 MG/5 ML VIAL IVP ONE (05:58)
[2021-05-22 06:03] LABS: BUN/Creatinine Ratio 17 (6-26); Blood Urea Nitrogen 15 mg/dL (8-23); Calcium 9.6 mg/dL (8.6-10.3); Carbon Dioxide 27 mEq/L (23-29); Chloride 101 mEq/L (98-107); Glucose 91 mg/dL (70-105); Osmolality,Calculated 284 (280-300); Phosphorous 4.6 mg/dL (2.7-4.5); Potassium 3.8 mEq/L (3.5-5.1); Sodium 137 mEq/L (136-145); eGFR For African Americans > 60 (> 60); eGFR For Non-African Americans > 60 (> 60)
[2021-05-22] MEDS ORDERED: DilTIAZem CD (24hr) 300 MG CAP.ER.24H PO SCH (06:15)
[2021-05-22] MEDS: Furosemide 40 MG/4 ML VIAL IVP SCH ×2 (08:23→19:04)
[2021-05-22] MEDS: Aspirin Enteric Coated 81 MG Tablet PO SCH (08:23)
[2021-05-22] MEDS: Carbidopa/Levodopa 25/100 TABLET PO SCH ×2 (08:24→20:09)
[2021-05-22] MEDS: Folic Acid 1 MG TABLET PO SCH (08:24)
[2021-05-22] MEDS: levETIRAcetam 250 MG TABLET PO SCH ×2 (08:25→20:09)
[2021-05-22] MEDS ORDERED: levoFLOXacin 750 MG/150 ML 750 MG/150 ML BAG IVPB SCH (09:00)
[2021-05-22] MEDS ORDERED: E-Z-HD (BARIUM SULF) SUSPENSION PO ONE (12:35)
[2021-05-22] MEDS ORDERED: E-Z-PAQUE (BARIUM SULF) SUSP 1 BOTTLE PO ONE (12:35)
[2021-05-22] MEDS ORDERED: *HR* Phytonadione 10 MG/ML AMPUL SQ ONE (13:28)
[2021-05-22] MEDS: Metoprolol XL (24 HR) Succ 25 MG TAB.ER.24H PO SCH (14:10)
[2021-05-22] MEDS: lisinopriL 5 MG TABLET PO SCH (14:10)
[2021-05-22] MEDS: *HR* LORazepam 2 MG/ML VIAL IVP PRN ×2 (16:30→23:41)
[2021-05-22 17:31] LABS: Hematocrit 39.3 % (37.5-50.1); Hemoglobin 12.5 g/dL (12.9-16.9)
[2021-05-22] MEDS ORDERED: Warfarin perPT PO SCH (18:00)
[2021-05-22] MEDS ORDERED: MetroNIDAZOLE 500 MG/100 ML 500 MG/100 ML BAG IVPB SCH (18:08)
[2021-05-22] MEDS: rOPINIRole 1 MG TABLET PO SCH (20:09)
[2021-05-22] MEDS: Doxycycline 100 MG in 0.9 % Sodium Chloride Mini Bag 100 ML IVPB SCH (20:10)
[2021-05-23 05:04] LABS: Basophils # 0.1 K/mcL (0.0-0.2); Basophils % 0.7 %; Eosinophils # 0.3 K/mcL (0.0-0.6); Eosinophils % 3.3 %; Hematocrit 32.4 % (37.5-50.1); Immature Granulocytes % 0.9 % (0-4); Lymphocytes # 1.7 K/mcL (0.6-4.6); Lymphocytes % 18.4 %; Mean Corpuscular HGB Conc 33.3 g/dL (31.6-35.5); Mean Corpuscular Volume 104.9 fL (83.0-100.0); Monocytes # 0.9 K/mcL (0.0-1.3); Monocytes % 9.7 %; Neutrophils # 6.1 K/mcL (1.6-8.9); Platelet Count 139 K/mcL (140-400); Red Blood Count 3.09 M/mcL (4.19-5.50); Red Cell Distribution Width 15.4 % (11.5-14.5); White Blood Count 9.1 K/mcL (4.3-11.1)
[2021-05-23 05:05] LABS: Hemoglobin 10.8 g/dL (12.9-16.9); INR 2.6; Prothrombin Time 29.1 Seconds (9.4-12.1)
[2021-05-23 05:26] LABS: BUN/Creatinine Ratio 17 (6-26); Blood Urea Nitrogen 19 mg/dL (8-23); Calcium 8.5 mg/dL (8.6-10.3); Carbon Dioxide 26 mEq/L (23-29); Chloride 101 mEq/L (98-107); Glucose 97 mg/dL (70-105); Magnesium 1.9 mg/dL (1.6-2.6); Osmolality,Calculated 280 (280-300); Phosphorous 4.8 mg/dL (2.7-4.5); Potassium 3.9 mEq/L (3.5-5.1); Sodium 134 mEq/L (136-145); eGFR For African Americans > 60 (> 60); eGFR For Non-African Americans > 60 (> 60)
[2021-05-23] MEDS: Doxycycline 100 MG in 0.9 % Sodium Chloride Mini Bag 100 ML IVPB SCH (06:18)
[2021-05-23] MEDS: levETIRAcetam 250 MG TABLET PO SCH ×2 (08:37→21:42)
[2021-05-23] MEDS: Aspirin Enteric Coated 81 MG Tablet PO SCH (08:37)
[2021-05-23] MEDS: Carbidopa/Levodopa 25/100 TABLET PO SCH ×2 (08:37→21:42)
[2021-05-23] MEDS: lisinopriL 5 MG TABLET PO SCH (08:39)
[2021-05-23] MEDS: Metoprolol XL (24 HR) Succ 25 MG TAB.ER.24H PO SCH (08:39)
[2021-05-23] MEDS: Furosemide 20 MG TABLET PO SCH (08:39)
[2021-05-23] MEDS: Folic Acid 1 MG TABLET PO SCH (08:39)
[2021-05-23] MEDS: *HR* LORazepam 2 MG/ML VIAL IVP PRN (13:43)
[2021-05-23] MEDS: rOPINIRole 1 MG TABLET PO SCH (21:42)
[2021-05-23] MEDS: Apixaban 5 MG TABLET PO SCH (21:42)
[2021-05-24 07:11] LABS: INR 1.5; Prothrombin Time 17.2 Seconds (9.4-12.1)
[2021-05-24] MEDS: levETIRAcetam 250 MG TABLET PO SCH ×2 (07:43→20:25)
[2021-05-24] MEDS: Metoprolol XL (24 HR) Succ 25 MG TAB.ER.24H PO SCH (07:43)
[2021-05-24] MEDS: Furosemide 20 MG TABLET PO SCH (07:44)
[2021-05-24] MEDS: lisinopriL 5 MG TABLET PO SCH (07:44)
[2021-05-24] MEDS: Apixaban 5 MG TABLET PO SCH ×2 (07:44→20:25)
[2021-05-24] MEDS: Folic Acid 1 MG TABLET PO SCH (07:44)
[2021-05-24] MEDS: Carbidopa/Levodopa 25/100 TABLET PO SCH ×2 (07:44→20:26)
[2021-05-24] MEDS: Zonisamide 100 MG CAPSULE PO SCH ×2 (17:52→20:25)
[2021-05-24] MEDS: rOPINIRole 1 MG TABLET PO SCH (20:26)
[2021-05-25] MEDS: *HR* LORazepam 2 MG/ML VIAL IVP PRN (03:30)
[2021-05-25 05:25] LABS: Hematocrit 41.3 % (37.5-50.1); Hemoglobin 13.3 g/dL (12.9-16.9)
[2021-05-25 05:32] LABS: INR 1.4; Prothrombin Time 15.7 Seconds (9.4-12.1)
[2021-05-25] MEDS: Apixaban 5 MG TABLET PO SCH ×2 (07:55→19:40)
[2021-05-25] MEDS: Multivit/Ca/Min/Fe/FA 1 TAB TABLET PO SCH (07:55)
[2021-05-25] MEDS: levETIRAcetam 250 MG TABLET PO SCH ×2 (07:55→19:48)
[2021-05-25] MEDS: Cholecalciferol (D-3) 1,000 UNIT (25MCG) TABLET PO SCH (07:55)
[2021-05-25] MEDS: Zonisamide 100 MG CAPSULE PO SCH ×3 (07:55→19:39)
[2021-05-25] MEDS: Vitamin B Complex/Vit C/Vit E 1 EACH TABLET PO SCH (07:55)
[2021-05-25] MEDS: Metoprolol XL (24 HR) Succ 25 MG TAB.ER.24H PO SCH (07:56)
[2021-05-25] MEDS: Carbidopa/Levodopa 25/100 TABLET PO SCH ×2 (07:57→19:39)
[2021-05-25] MEDS: lisinopriL 5 MG TABLET PO SCH (07:57)
[2021-05-25] MEDS: Folic Acid 1 MG TABLET PO SCH (07:57)
[2021-05-25] MEDS: Furosemide 20 MG TABLET PO SCH (07:57)
[2021-05-25] MEDS: Fluticasone Propionate Nasal 50 MCG/SPRAY BOTTLE NS SCH (08:48)
[2021-05-25] MEDS: rOPINIRole 1 MG TABLET PO SCH (19:38)
[2021-05-26 05:35] LABS: INR 1.4; Prothrombin Time 15.2 Seconds (9.4-12.1)
[2021-05-26] MEDS: Carbidopa/Levodopa 25/100 TABLET PO SCH ×2 (09:05→20:21)
[2021-05-26] MEDS: levETIRAcetam 250 MG TABLET PO SCH ×2 (09:06→20:21)
[2021-05-26] MEDS: Cholecalciferol (D-3) 1,000 UNIT (25MCG) TABLET PO SCH (09:06)
[2021-05-26] MEDS: Folic Acid 1 MG TABLET PO SCH (09:06)
[2021-05-26] MEDS: Multivit/Ca/Min/Fe/FA 1 TAB TABLET PO SCH (09:06)
[2021-05-26] MEDS: Metoprolol XL (24 HR) Succ 25 MG TAB.ER.24H PO SCH (09:06)
[2021-05-26] MEDS: Furosemide 20 MG TABLET PO SCH (09:07)
[2021-05-26] MEDS: Vitamin B Complex/Vit C/Vit E 1 EACH TABLET PO SCH (09:07)
[2021-05-26] MEDS: Zonisamide 100 MG CAPSULE PO SCH ×3 (09:07→20:21)
[2021-05-26] MEDS: lisinopriL 5 MG TABLET PO SCH (09:08)
[2021-05-26] MEDS: Fluticasone Propionate Nasal 50 MCG/SPRAY BOTTLE NS SCH (09:08)
[2021-05-26] MEDS: Apixaban 5 MG TABLET PO SCH ×2 (09:08→20:22)
[2021-05-26] MEDS: Melatonin 3 MG TABLET PO PRN (20:21)
[2021-05-26] MEDS: rOPINIRole 1 MG TABLET PO SCH (20:21)
[2021-05-26] MEDS: *HR* LORazepam 2 MG/ML VIAL IVP PRN (21:52)
[2021-05-27 01:51] LABS: INR 1.2; Prothrombin Time 13.7 Seconds (9.4-12.1)
[2021-05-27 02:00] LABS: BUN/Creatinine Ratio 10 (6-26); Blood Urea Nitrogen 7 mg/dL (8-23); Calcium 7.9 mg/dL (8.6-10.3); Carbon Dioxide 26 mEq/L (23-29); Chloride 104 mEq/L (98-107); Glucose 96 mg/dL (70-105); Magnesium 2.3 mg/dL (1.6-2.6); Osmolality,Calculated 280 (280-300); Phosphorous 2.4 mg/dL (2.7-4.5); Potassium 2.7 mEq/L (3.5-5.1); Sodium 136 mEq/L (136-145); eGFR For African Americans > 60 (> 60); eGFR For Non-African Americans > 60 (> 60)
[2021-05-27] MEDS: *HR* LORazepam 2 MG/ML VIAL IVP PRN (03:27)
[2021-05-27] MEDS: Furosemide 20 MG TABLET PO SCH (07:39)
[2021-05-27] MEDS: Multivit/Ca/Min/Fe/FA 1 TAB TABLET PO SCH (07:39)
[2021-05-27] MEDS: Carbidopa/Levodopa 25/100 TABLET PO SCH ×2 (07:39→20:34)
[2021-05-27] MEDS: Vitamin B Complex/Vit C/Vit E 1 EACH TABLET PO SCH (07:39)
[2021-05-27] MEDS: Zonisamide 100 MG CAPSULE PO SCH ×3 (07:39→20:33)
[2021-05-27] MEDS: Apixaban 5 MG TABLET PO SCH ×2 (07:39→20:34)
[2021-05-27] MEDS: Cholecalciferol (D-3) 1,000 UNIT (25MCG) TABLET PO SCH (07:40)
[2021-05-27] MEDS: Folic Acid 1 MG TABLET PO SCH (07:40)
[2021-05-27] MEDS: lisinopriL 5 MG TABLET PO SCH (07:40)
[2021-05-27] MEDS: levETIRAcetam 250 MG TABLET PO SCH ×2 (07:40→20:34)
[2021-05-27] MEDS: Metoprolol XL (24 HR) Succ 25 MG TAB.ER.24H PO SCH (07:40)
[2021-05-27] MEDS: Fluticasone Propionate Nasal 50 MCG/SPRAY BOTTLE NS SCH (07:45)
[2021-05-27] MEDS: rOPINIRole 1 MG TABLET PO SCH (20:34)
[2021-05-27] MEDS: Melatonin 3 MG TABLET PO PRN (20:49)
[2021-05-27] MEDS: *HR* HYDROcodone/Acet 5/325 mg TABLET PO PRN (20:49)
[2021-05-28 03:26] LABS: BUN/Creatinine Ratio 11 (6-26); Blood Urea Nitrogen 7 mg/dL (8-23); Calcium 7.8 mg/dL (8.6-10.3); Carbon Dioxide 22 mEq/L (23-29); Chloride 104 mEq/L (98-107); Glucose 97 mg/dL (70-105); Magnesium 2.1 mg/dL (1.6-2.6); Osmolality,Calculated 276 (280-300); Phosphorous 2.6 mg/dL (2.7-4.5); Sodium 134 mEq/L (136-145); eGFR For African Americans > 60 (> 60); eGFR For Non-African Americans > 60 (> 60)
[2021-05-28] MEDS ORDERED: Potassium Phosphate 44 MEQ in 0.9 % Sodium Chloride 250 ML IVPB ONE (07:41)
[2021-05-28] MEDS: Cholecalciferol (D-3) 1,000 UNIT (25MCG) TABLET PO SCH (09:46)
[2021-05-28] MEDS: Zonisamide 100 MG CAPSULE PO SCH ×2 (09:46→20:30)
[2021-05-28] MEDS: levETIRAcetam 250 MG TABLET PO SCH ×2 (09:46→20:31)
[2021-05-28] MEDS: Vitamin B Complex/Vit C/Vit E 1 EACH TABLET PO SCH (09:46)
[2021-05-28] MEDS: lisinopriL 5 MG TABLET PO SCH (09:48)
[2021-05-28] MEDS: Folic Acid 1 MG TABLET PO SCH (09:48)
[2021-05-28] MEDS: Multivit/Ca/Min/Fe/FA 1 TAB TABLET PO SCH (09:48)
[2021-05-28] MEDS: Carbidopa/Levodopa 25/100 TABLET PO SCH ×2 (09:48→20:30)
[2021-05-28] MEDS: Metoprolol XL (24 HR) Succ 25 MG TAB.ER.24H PO SCH ×2 (09:48→20:31)
[2021-05-28] MEDS: Furosemide 20 MG TABLET PO SCH (09:49)
[2021-05-28] MEDS: Apixaban 5 MG TABLET PO SCH ×2 (09:49→20:31)
[2021-05-28] MEDS ORDERED: Magnesium Sulfate 1 GM/102 ML PIGGYBACK IVPB ONE (13:30)
[2021-05-28] MEDS: rOPINIRole 1 MG TABLET PO SCH (20:30)
[2021-05-28] MEDS: *HR* HYDROcodone/Acet 5/325 mg TABLET PO PRN (20:32)
[2021-05-28] MEDS: Melatonin 3 MG TABLET PO PRN (20:34)
[2021-05-28] MEDS: Fluticasone Propionate Nasal 50 MCG/SPRAY BOTTLE NS SCH (21:41)
[2021-05-29] MEDS: Zonisamide 100 MG CAPSULE PO SCH (04:58)
[2021-05-29 07:06] VITALS: O2SAT 96
[2021-05-29] MEDS: Carbidopa/Levodopa 25/100 TABLET PO SCH (08:06)
[2021-05-29] MEDS: levETIRAcetam 250 MG TABLET PO SCH (08:06)
[2021-05-29] MEDS: Vitamin B Complex/Vit C/Vit E 1 EACH TABLET PO SCH (08:07)
[2021-05-29] MEDS: Folic Acid 1 MG TABLET PO SCH (08:08)
[2021-05-29] MEDS: Apixaban 5 MG TABLET PO SCH (08:08)
[2021-05-29] MEDS: Furosemide 20 MG TABLET PO SCH (08:08)
[2021-05-29] MEDS: Cholecalciferol (D-3) 1,000 UNIT (25MCG) TABLET PO SCH (08:08)
[2021-05-29] MEDS: lisinopriL 5 MG TABLET PO SCH (08:08)
[2021-05-29] MEDS: Metoprolol XL (24 HR) Succ 25 MG TAB.ER.24H PO SCH (08:08)
[2021-05-29] MEDS: Multivit/Ca/Min/Fe/FA 1 TAB TABLET PO SCH (08:08)
[2021-05-29] MEDS: Fluticasone Propionate Nasal 50 MCG/SPRAY BOTTLE NS SCH (08:15)
[2021-05-29] MEDS ORDERED: Zonisamide 100 MG CAPSULE PO SCH (09:00)
[2021-05-29 11:25] VITALS: BP 119/78; PULSE 75; TEMP 97.9
[2021-05-29 11:37] LABS: Influenza A PCR Negative (Negative); Influenza B PCR Negative (Negative); Resp. Syncytial Virus PCR Negative (Negative)
[2021-05-29 11:50] LABS: SARS-CoV-2 by PCR (In House) Negative (Negative)
== END 2021-05-29 15:01 | DRG 177 ==
LOC: EMEROOARM 13:42 → 3NENU 13:42 → SUATTDRO 18:06 → 3NENU 18:44
PROVIDERS: ADMIT Internal Medicine; ATTEND Internal Medicine

== ENCOUNTER 2021-08-23 10:09 | Inpatient (IN) ==
[2021-08-23] MEDS ORDERED: 0.9 % Sodium Chloride 500 ML IV ONE ×2 (10:35→11:20)
[2021-08-23 10:39] LABS: Basophils % 0.4 %; Eosinophils # 0.3 K/mcL (0.0-0.6); Eosinophils % 4.4 %; Hematocrit 38.7 % (37.5-50.1); Hemoglobin 12.7 g/dL (12.9-16.9); Immature Granulocytes % 0.4 % (0-4); Lymphocytes # 1.3 K/mcL (0.6-4.6); Lymphocytes % 16.3 %; Mean Corpuscular HGB Conc 32.8 g/dL (31.6-35.5); Mean Corpuscular Hemoglobin 32.6 pg (28.0-33.3); Mean Corpuscular Volume 99.5 fL (83.0-100.0); Mean Platelet Volume 11.1 fL (9.4-12.4); Monocytes # 0.4 K/mcL (0.0-1.3); Monocytes % 5.7 %; Neutrophils # 5.6 K/mcL (1.6-8.9); Platelet Count 175 K/mcL (140-400); Red Blood Count 3.89 M/mcL (4.19-5.50); Red Cell Distribution Width 14.1 % (11.5-14.5); Segmented Neutrophils % 72.8 %; White Blood Count 7.7 K/mcL (4.3-11.1)
[2021-08-23 11:00] LABS: Alanine Aminotransferase 19 Units/L (7-52); Albumin 2.8 g/dL (3.5-5.7); Alkaline Phosphatase 167 Units/L (34-104); Aspartate Amino Transferase 26 Units/L (13-39); BUN/Creatinine Ratio 19 (6-26); Bilirubin,Direct 0.1 mg/dL (0.0-0.2); Bilirubin,Indirect 0.4 mg/dL (0.0-1.0); Bilirubin,Total 0.5 mg/dL (0.3-1.0); Blood Urea Nitrogen 10 mg/dL (8-23); Calcium 8.6 mg/dL (8.6-10.3); Carbon Dioxide 25 mEq/L (23-29); Chloride 105 mEq/L (98-107); Globulin 2.7 g/dL (2.4-3.5); Glucose 94 mg/dL (70-105); Lipase 20 Units/L (11-82); Magnesium 1.9 mg/dL (1.6-2.6); Osmolality,Calculated 279 (280-300); Phosphorous 3.2 mg/dL (2.7-4.5); Potassium 3.1 mEq/L (3.5-5.1); Sodium 135 mEq/L (136-145); Total Protein 5.5 g/dL (6.4-8.9); Troponin I < 0.03 ng/mL (< 0.04); eGFR For African Americans > 60 (> 60); eGFR For Non-African Americans > 60 (> 60)
[2021-08-23] MEDS ORDERED: cefTRIAXone 1,000 MG in 0.9 % Sodium Chloride Mini Bag 100 ML IVPB ONE (11:05)
[2021-08-23] MEDS ORDERED: Azithromycin 500 MG in 0.9 % Sodium Chloride 250 ML IVPB ONE (11:08)
[2021-08-23] MEDS ORDERED: MetroNIDAZOLE 500 MG/100 ML 500 MG/100 ML BAG IVPB ONE (11:20)
[2021-08-23] MEDS ORDERED: Metoprolol XL (24 HR) Succ 25 MG TAB.ER.24H PO ONE (11:21)
[2021-08-23 11:34] LABS: INR 1.2; Prothrombin Time 13.2 Seconds (9.4-12.1)
[2021-08-23 11:37] LABS: Activated Partial Thrombo Time 31.5 Seconds (26.0-36.0)
[2021-08-23 11:41] LABS: Thyroid Stimulating Hormone 1.285 mcIU/mL (0.340-5.600)
[2021-08-23 11:55] LABS: Influenza A PCR Negative (Negative); Influenza B PCR Negative (Negative); Resp. Syncytial Virus PCR Negative (Negative)
[2021-08-23 11:58] LABS: SARS-CoV-2 by PCR (In House) Positive (Negative)
[2021-08-23] MEDS ORDERED: cefTRIAXone 1,000 MG in Water for inj. (sterile) 10 ML IVP ONE (12:00)
[2021-08-23 12:24] LABS: Bilirubin,Urine Negative (Negative); Blood,Urine Negative (Negative); Clarity,Urine Clear (Clear); Color,Urine Yellow (Yellow); Glucose,Urine (UA) Normal (Normal); Ketones,Urine Negative (Negative); Leukocyte Esterase,Urine Negative (Negative); Nitrite,Urine Negative (Negative); PH,Urine 6.5 pH Units (5.0-8.0); Protein,Urine Trace mg/dL (Neg-Trace); Specific Gravity,Urine 1.015 (1.010-1.025)
[2021-08-23] MEDS ORDERED: Acetaminophen 325 MG TABLET PO PRN (13:22)
[2021-08-23] MEDS ORDERED: Naloxone 0.4 MG/ML INJ IVP PRN (13:22)
[2021-08-23] MEDS ORDERED: *HR* Metoprolol 5 MG/5 ML VIAL IVP PRN (13:34)
[2021-08-23] MEDS ORDERED: *HR* HYDROcodone/Acet 5/325 mg TABLET PO PRN (14:33)
[2021-08-23] MEDS ORDERED: *HR* Methotrexate 2.5 MG TABLET PO SCH (14:45)
[2021-08-23] MEDS: Zonisamide 100 MG CAPSULE PO SCH ×2 (15:50→19:41)
[2021-08-23] MEDS: Ringers Solution, Lactated 1,000 ML IVC SCH (19:40)
[2021-08-23] MEDS: Apixaban 5 MG TABLET PO SCH (19:41)
[2021-08-23] MEDS: levETIRAcetam 250 MG TABLET PO SCH (19:42)
[2021-08-23] MEDS: rOPINIRole 1 MG TABLET PO SCH (19:42)
[2021-08-23] MEDS: Ondansetron 4 MG/2 ML VIAL IVP PRN (20:00)
[2021-08-24 01:13] LABS: Basophils % 0.3 %; Eosinophils # 0.3 K/mcL (0.0-0.6); Eosinophils % 3.9 %; Hematocrit 32.7 % (37.5-50.1); Immature Granulocytes % 0.4 % (0-4); Lymphocytes # 1.4 K/mcL (0.6-4.6); Lymphocytes % 18.4 %; Mean Corpuscular HGB Conc 32.4 g/dL (31.6-35.5); Mean Corpuscular Hemoglobin 32.2 pg (28.0-33.3); Mean Corpuscular Volume 99.4 fL (83.0-100.0); Monocytes # 0.5 K/mcL (0.0-1.3); Monocytes % 5.9 %; Neutrophils # 5.5 K/mcL (1.6-8.9); Platelet Count 155 K/mcL (140-400); Red Blood Count 3.29 M/mcL (4.19-5.50); Segmented Neutrophils % 71.1 %; White Blood Count 7.7 K/mcL (4.3-11.1)
[2021-08-24 01:15] LABS: Hemoglobin 10.6 g/dL (12.9-16.9)
[2021-08-24 01:32] LABS: BUN/Creatinine Ratio 24 (6-26); Blood Urea Nitrogen 10 mg/dL (8-23); Carbon Dioxide 22 mEq/L (23-29); Chloride 108 mEq/L (98-107); Glucose 78 mg/dL (70-105); Osmolality,Calculated 278 (280-300); Potassium 3.8 mEq/L (3.5-5.1); Sodium 135 mEq/L (136-145); eGFR For African Americans > 60 (> 60); eGFR For Non-African Americans > 60 (> 60)
[2021-08-24] MEDS: Apixaban 5 MG TABLET PO SCH ×2 (09:53→20:11)
[2021-08-24] MEDS: Zonisamide 100 MG CAPSULE PO SCH ×3 (09:54→20:11)
[2021-08-24] MEDS: Folic Acid 1 MG TABLET PO SCH (09:54)
[2021-08-24] MEDS: levETIRAcetam 250 MG TABLET PO SCH ×2 (09:54→20:11)
[2021-08-24] MEDS: levoFLOXacin 750 MG/150 ML 750 MG/150 ML BAG IVPB SCH (09:55)
[2021-08-24] MEDS: Fluticasone Propionate Nasal 50 MCG/SPRAY BOTTLE NS SCH (09:56)
[2021-08-24] MEDS: Ondansetron 4 MG/2 ML VIAL IVP PRN (10:12)
[2021-08-24] MEDS ORDERED: Sennosides/Docusate Sodium TABLET PO PRN (17:16)
[2021-08-24] MEDS: rOPINIRole 1 MG TABLET PO SCH (20:11)
[2021-08-24] MEDS: Metoprolol XL (24 HR) Succ 25 MG TAB.ER.24H PO SCH (20:11)
[2021-08-24] MEDS ORDERED: Melatonin 3 MG TABLET PO SCH (21:00)
[2021-08-24] MEDS: Ringers Solution, Lactated 1,000 ML IVC SCH (21:13)
[2021-08-25 04:44] LABS: Basophils % 0.2 %; Eosinophils # 0.4 K/mcL (0.0-0.6); Eosinophils % 5.8 %; Hematocrit 35.4 % (37.5-50.1); Hemoglobin 11.4 g/dL (12.9-16.9); Immature Granulocytes % 0.5 % (0-4); Lymphocytes # 1.4 K/mcL (0.6-4.6); Lymphocytes % 21.5 %; Mean Corpuscular HGB Conc 32.2 g/dL (31.6-35.5); Mean Corpuscular Hemoglobin 32.3 pg (28.0-33.3); Mean Corpuscular Volume 100.3 fL (83.0-100.0); Mean Platelet Volume 10.6 fL (9.4-12.4); Monocytes # 0.5 K/mcL (0.0-1.3); Monocytes % 7.2 %; Neutrophils # 4.1 K/mcL (1.6-8.9); Platelet Count 160 K/mcL (140-400); Red Blood Count 3.53 M/mcL (4.19-5.50); Red Cell Distribution Width 14.1 % (11.5-14.5); Segmented Neutrophils % 64.8 %; White Blood Count 6.4 K/mcL (4.3-11.1)
[2021-08-25 05:02] LABS: BUN/Creatinine Ratio 17 (6-26); Blood Urea Nitrogen 9 mg/dL (8-23); Calcium 8.5 mg/dL (8.6-10.3); Carbon Dioxide 25 mEq/L (23-29); Chloride 107 mEq/L (98-107); Glucose 85 mg/dL (70-105); Magnesium 1.8 mg/dL (1.6-2.6); Osmolality,Calculated 280 (280-300); Phosphorous 3.1 mg/dL (2.7-4.5); Potassium 3.9 mEq/L (3.5-5.1); Sodium 136 mEq/L (136-145); eGFR For African Americans > 60 (> 60); eGFR For Non-African Americans > 60 (> 60)
[2021-08-25] MEDS: Metoprolol XL (24 HR) Succ 25 MG TAB.ER.24H PO SCH (08:56)
[2021-08-25] MEDS: Apixaban 5 MG TABLET PO SCH (08:56)
[2021-08-25] MEDS: levETIRAcetam 250 MG TABLET PO SCH (08:56)
[2021-08-25] MEDS: Folic Acid 1 MG TABLET PO SCH (08:57)
[2021-08-25] MEDS: Zonisamide 100 MG CAPSULE PO SCH (08:57)
[2021-08-25] MEDS: Ondansetron 4 MG/2 ML VIAL IVP PRN (08:58)
[2021-08-25] MEDS: levoFLOXacin 750 MG/150 ML 750 MG/150 ML BAG IVPB SCH (08:58)
[2021-08-25] MEDS: Fluticasone Propionate Nasal 50 MCG/SPRAY BOTTLE NS SCH (08:59)
[2021-08-25] MEDS ORDERED: Cholecalciferol (D-3) 1,000 UNIT (25MCG) TABLET PO SCH (09:00)
[2021-08-25 09:12] VITALS: BP 127/82; PULSE 93; TEMP 97.9; O2SAT 95
== END 2021-08-25 13:30 | DRG 194 ==
LOC: 3BNU 10:09 → EMEROOARM 10:09 → SUATTDRO 12:40 → 3BNU 12:52
PROVIDERS: ADMIT General Practice; ATTEND Internal Medicine